=== PATIENT | male | born 2000 | race African-American/Black ===

== ENCOUNTER 2020-12-16 09:39 | Emergency (ER) | payer OTHER ==
[~2020-12-16] VITALS: Ht 175.3 cm; Wt 72.6 kg
[2020-12-16 10:31] LABS: BASOPHILS 0.1 % (0.0-2.0); EOSINOPHILS 1.6 % (0.0-3.0); HEMATOCRIT 47.6 % (42.0-52.0); HEMOGLOBIN 16.2 gm/dL (14.0-18.0); LYMPHOCYTES 8.1 % (24.0-44.0); MCH 29.8 pg (26.0-34.0); MCV 87.8 fL (80.0-100.0); MONOCYTES 10.3 % (1.0-8.0); PLATELET COUNT 218 thou/uL (150-400); POLYS 79.9 % (36.0-66.0); RBC 5.42 mil/uL (4.50-6.00); RDW 13.2 % (10.5-14.5); WBC 8.8 thou/uL (4.0-11.0)
[2020-12-16 10:40] LABS: CALCIUM 9.1 mg/dL (8.5-10.1); CREATININE 1.1 mg/dL (0.7-1.3); POTASSIUM 3.8 mmol/L (3.5-5.1)
[2020-12-16 11:02] LABS: ALBUMIN 4.2 g/dL (3.4-5.0); TOTAL BILIRUBIN 0.9 mg/dL (0.2-1.0); TOTAL PROTEIN 8.2 g/dL (6.4-8.2)
[2020-12-16] MEDS ORDERED: ZOFRAN ODT4 MG PO (11:22)
[2020-12-16 11:30] VITALS: BP 102/47
== END 2020-12-16 11:30 | disposition home or self-care (01) ==
LOC: ER 09:39
PROVIDERS: Emergency Medicine
DX: R11.2 Nausea with vomiting, unspecified (principal); R10.9 Unspecified abdominal pain

== ENCOUNTER 2021-05-06 22:54 | Emergency (ER) | payer OTHER ==
[~2021-05-06] VITALS: Ht 170.2 cm; Wt 68.5 kg
[~2021-05-06 22:54] MED LIST: ZOFRAN ODT4 MG PO
[2021-05-06] MEDS ORDERED: NOHOMEMEDICATIONS (23:11)
[2021-05-07] MEDS ORDERED: PROAIR HFA8.5 GM INH (01:06)
[2021-05-07 02:05] VITALS: BP 116/69
== END 2021-05-07 02:05 | disposition home or self-care (01) ==
LOC: ER 22:54
PROVIDERS: Emergency Medicine
DX: J06.9 Acute upper respiratory infection, unspecified (principal); Z20.822 Contact with and (suspected) exposure to COVID-19

== ENCOUNTER 2021-05-24 20:32 | Emergency (ER) | payer OTHER ==
[~2021-05-24] VITALS: Ht 175.3 cm; Wt 68.5 kg
[~2021-05-24 20:32] MED LIST changes: +NOHOMEMEDICATIONS; +PROAIR HFA8.5 GM INH
[2021-05-24] MEDS ORDERED: NORCO5 PO (21:49)
[2021-05-24 22:02] VITALS: BP 121/74
== END 2021-05-24 22:03 | disposition home or self-care (01) ==
LOC: ER 20:32
DX: S80.01XA Contusion of right knee, initial encounter (principal); M25.461 Effusion, right knee; V49.49XA Driver injured in collision with other motor vehicles in traffic accident, initial encounter; Y93.89 Activity, other specified; Y92.89 Other specified places as the place of occurrence of the external cause; Y99.8 Other external cause status

== ENCOUNTER 2021-08-17 15:02 | Emergency (ER) | payer OTHER ==
[~2021-08-17] VITALS: Ht 170.2 cm; Wt 71.2 kg
[~2021-08-17 15:02] MED LIST changes: +NORCO5 PO
[2021-08-17 19:36] VITALS: BP 121/70
== END 2021-08-17 19:37 | disposition home or self-care (01) ==
LOC: ER 15:02
PROVIDERS: Emergency Medicine
DX: U07.1 COVID-19 (principal); B34.9 Viral infection, unspecified; F17.200 Nicotine dependence, unspecified, uncomplicated